=== PATIENT | female | born 1995 | race Caucasian/White ===

== ENCOUNTER 2016-06-07 21:26 | Emergency (ER) | payer BC ==
--- NOTE | 2016-06-07 21:49 | UC ---
Complaint Female HPI - HPI Summary HPI Summary: patient has had increased urgency and frequency of urination, she has had unprotected sex and denies fever and back pain - History Of Current Complaint Stated Complaint: URINARY Time Seen by Provider: 06/07/16 21:32 Hx Obtained From: Patient Hx Last Menstrual Period: 03/07/15 ?: No Onset/Duration: Sudden Onset, Lasting Days Timing: Constant Severity Initially: Mild Severity Currently: Mild Pain Intensity: 3 Pain Scale Used: 0-10 Numeric Aggravating Factor(s): Urination - Allergies/Home Medications Allergies/Adverse Reactions: Allergies Allergy/AdvReac Type Severity Reaction Status Date / Time No Known Allergies Allergy Verified 06/07/16 21:56 PMH/Surg Hx/FS Hx/Imm Hx Previously Healthy: Yes - Surgical History Surgical History: None - Family History Known Family History: Negative: Cardiac Disease, Hypertension - Social History Alcohol Use: Occasionally Substance Use Type: None Smoking Status (MU): Never Smoked Tobacco Review of Systems Constitutional: Negative Skin: Negative Eyes: Negative ENT: Negative Respiratory: Negative Cardiovascular: Negative Gastrointestinal: Negative Genitourinary: Frequency, Urgency Motor: Negative Neurovascular: Negative Musculoskeletal: Negative Neurological: Negative Psychological: Negative All Other Systems Reviewed And Are Negative: Yes Physical Exam Triage Information Reviewed: Yes Appearance: Well-Appearing, Well-Nourished, Pain Distress Vital Signs Reviewed: Yes Eye Exam: Normal Eyes: Positive: Conjunctiva Clear ENT Exam: Normal ENT: Positive: Normal ENT inspection, Hearing grossly normal, Pharynx normal, TMs normal Dental Exam: Normal Neck exam: Normal Neck: Positive: Supple, Nontender, No Lymphadenopathy Respiratory Exam: Normal Respiratory: Positive: Chest non-tender, Lungs clear, Normal breath sounds Cardiovascular Exam: Normal Cardiovascular: Positive: RRR, No Murmur, Pulses Normal Abdominal Exam: Normal Abdomen Description: Positive: Nontender, No Organomegaly, Soft - neg CVA tenderness Bowel Sounds: Positive: Present Musculoskeletal Exam: Normal Musculoskeletal: Positive: Strength Intact, ROM Intact, No Edema Neurological Exam: Normal Neurological: Positive: Alert, Muscle Tone Normal Psychological Exam: Normal Skin Exam: Normal Complaint Female Dx - Course Course Of Treatment: hx obtained, exam performed, UA and Urine done, gc/cl sent as well due to unprotected sex. she denies any buring, urine is cloudy and dark. educated on prevention of UTI. and improtance of using protection during sex. - Differential Dx/Diagnosis Differential Diagnosis/HQI/PQRI: Pelvic Inflammatory Disease, Sexually Transmitted Disease, Ureteral Stone, Urinary Tract Infection Provider Diagnoses: UTI Discharge - Discharge Plan Condition: Stable Disposition: HOME Discharge Disposition Comment: UTI Prescriptions: Cephalexin CAP* [Keflex CAP*] 500 mg PO BID #13 cap Phenazopyridine TAB* [Pyridium TAB*] 100 mg PO TID #6 tab Patient Education Materials: Urinary Tract Infection in Women (ED) Referrals: Non Staff,Doctor [Primary Care Provider] - Additional Instructions: Take the medication as prescribed. YOur test for STD takes a few days, we will call with positive results. Increase your fluid intake and practice good hygiene like we talked about.
[2016-06-07] MEDS ORDERED: Cephalexin CAP* 500 MG PO ONE (21:50)
[2016-06-07] MEDS ORDERED: Phenazopyridine TAB* 100 MG PO ONE (21:56)
[2016-06-07 22:00] VITALS: BP 117/76
[2016-06-07] MEDS ORDERED: Phenazopyridine TAB* 100 MG ONE (22:03)
== END 2016-06-07 22:14 | disposition home or self-care (01) ==
LOC: UCCORT 21:26
DX: N39.0 Urinary tract infection, site not specified (principal); Z32.02 Encounter for pregnancy test, result negative
CPT/HCPCS: 81025; 87077; 87086; 87186; 87491; 87591; 99212; A9270-GY; G0463

== ENCOUNTER 2016-07-16 15:24 | Emergency (ER) | payer BC ==
[2016-07-16 17:21] VITALS: BP 125/77
--- NOTE | 2016-07-16 18:21 | UC ---
Throat Pain/Nasal Iglesia HPI - HPI Summary HPI Summary: SORE THROAT HEADACHE COUGH AND FEVER FOR ONE WEEK. NO RASHES, NO ABDOMINAL PAIN. - History of Current Complaint Chief Complaint: UCGeneralIllness Stated Complaint: THROAT,PIERCE Time Seen by Provider: 07/16/16 17:20 Hx Obtained From: Patient Hx Last Menstrual Period: 2 wks ago Onset/Duration: Gradual Onset, Lasting Days, Still Present Severity: Moderate Associated Signs & Symptoms: Positive: Dysphagia, Hoarseness, Sinus Discomfort, Fever - Epiglottits Risk Factors Epiglottis Risk Factors: Negative - Allergies/Home Medications Allergies/Adverse Reactions: Allergies Allergy/AdvReac Type Severity Reaction Status Date / Time No Known Allergies Allergy Verified 07/16/16 17:16 Home Medications: Home Medications Acetaminophen TAB* [Tylenol TAB*] 650 mg PO Q6H PRN 07/16/16 [History Confirmed 07/16/16] PMH/Surg Hx/FS Hx/Imm Hx Previously Healthy: Yes - Surgical History Surgical History: None - Family History Known Family History: Negative: Cardiac Disease, Hypertension - Social History Occupation: Student Lives: With Family Alcohol Use: Occasionally Substance Use Type: None Smoking Status (MU): Never Smoked Tobacco Review of Systems Constitutional: Fever, Chills, Fatigue Skin: Negative Eyes: Negative ENT: Sore Throat, Nasal Discharge Cardiovascular: Negative Gastrointestinal: Negative Genitourinary: Negative Motor: Negative Neurovascular: Negative Musculoskeletal: Myalgia Neurological: Negative Psychological: Negative All Other Systems Reviewed And Are Negative: Yes Physical Exam Triage Information Reviewed: Yes Appearance: No Pain Distress, Well-Nourished, Ill-Appearing - MILD Vital Signs: Initial Vital Signs Temp 100.1 F 07/16/16 17:16 Pulse 79 07/16/16 17:16 Resp 16 07/16/16 17:16 BP 125/77 07/16/16 17:16 Pulse Ox 100 07/16/16 17:16 Vital Signs Reviewed: Yes Eye Exam: Normal Eyes: Positive: Conjunctiva Clear ENT: Positive: Hearing grossly normal, Pharyngeal erythema, TMs normal Dental Exam: Normal Neck exam: Normal Neck: Positive: Supple, Nontender, No Lymphadenopathy. Negative: Nuchal Rigidity, Tenderness @, Enlarged Nodes @ Respiratory Exam: Normal Respiratory: Positive: Chest non-tender, Lungs clear, Normal breath sounds, No respiratory distress, No accessory muscle use Cardiovascular Exam: Normal Cardiovascular: Positive: RRR, No Murmur, Pulses Normal, Brisk Capillary Refill Abdominal Exam: Normal Abdomen Description: Positive: Nontender, No Organomegaly, Soft Musculoskeletal Exam: Normal Musculoskeletal: Positive: Strength Intact, ROM Intact, No Edema Neurological Exam: Normal Psychological Exam: Normal Psychological: Positive: Normal Response To Family Skin Exam: Normal Throat Pain/Nasal Course/Dx - Differential Dx/Diagnosis Differential Diagnosis/HQI/PQRI: Influenza, Mononucleosis, Pharyngitis, Sinusitis, Tonsillitis, URI Provider Diagnoses: VIRAL SYNDROME. UPPER RESPIRATORY INFECTION Discharge - Discharge Plan Condition: Stable Disposition: HOME Patient Education Materials: Upper Respiratory Infection (ED), Viral Syndrome ( ED) Forms: *School Release Referrals: [facility] [Outside] Non Staff,Doctor [Primary Care Provider] -
[2016-07-17 10:34] LABS: EBV Response YES
[2016-07-17 10:46] LABS: Mono Internal Control QC Line Present
[2016-07-18 11:49] LABS: EBV Capsid Ag IgG Ab Positive (Negative); EBV Capsid Ag IgM Ab Negative (Negative)
== END 2016-07-16 18:35 | disposition home or self-care (01) ==
LOC: UCCORT 15:24
DX: B34.9 Viral infection, unspecified (principal); J06.9 Acute upper respiratory infection, unspecified
CPT/HCPCS: 36415; 86308; 86664; 86665; 87502; 87651; 99211; G0463

== ENCOUNTER 2016-07-24 12:21 | Emergency (ER) | payer BC ==
[2016-07-24 13:54] VITALS: BP 128/84
--- NOTE | 2016-07-24 14:00 | UC ---
Throat Pain/Nasal Iglesia HPI - HPI Summary HPI Summary: Head congestion for over 2 weeks, now green sputum. Pt was here 07/16/16, had dx of URI. 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 Pain/ pressure over cheeks and upper teeth, rt > left. hurts more when she bends fwd. fever of 100. + cough, no wheezing. denies , although due now. on OCP. - History of Current Complaint Chief Complaint: UCRespiratory Stated Complaint: SINUS COMPLAINT Time Seen by Provider: 07/24/16 13:33 Hx Last Menstrual Period: about one month - Allergies/Home Medications Allergies/Adverse Reactions: Allergies Allergy/AdvReac Type Severity Reaction Status Date / Time No Known Allergies Allergy Verified 07/24/16 13:54 Home Medications: Home Medications Ibuprofen TAB* [Advil TAB*] 400 mg PO Q6H PRN 07/24/16 [History Confirmed ] PMH/Surg Hx/FS Hx/Imm Hx Previously Healthy: Yes - Surgical History Surgical History: None - Family History Known Family History: Negative: Cardiac Disease, Hypertension - Social History Alcohol Use: Occasionally Substance Use Type: None Smoking Status (MU): Never Smoked Tobacco Review of Systems Constitutional: Negative Skin: Negative Eyes: Negative ENT: Sore Throat, Ear Ache, Nasal Discharge Respiratory: Cough Cardiovascular: Negative Gastrointestinal: Negative Genitourinary: Negative Motor: Negative Neurovascular: Negative Musculoskeletal: Negative Neurological: Negative Psychological: Negative All Other Systems Reviewed And Are Negative: Yes Physical Exam Triage Information Reviewed: Yes Appearance: Well-Nourished, Ill-Appearing - nasal congestion Vital Signs: Initial Vital Signs Temp 99.3 F 07/24/16 13:46 Pulse 79 07/24/16 13:46 Resp 18 07/24/16 13:46 BP 128/84 07/24/16 13:46 Pulse Ox 100 07/24/16 13:46 Eye Exam: Normal ENT: Positive: Pharyngeal erythema - +PND, no exudate., Nasal congestion, TMs normal, Other: - + b/l frontal and maxillary tenderness.. Negative: Tonsillar exudate - no abscess Dental Exam: Normal Neck exam: Normal Neck: Positive: Supple, Nontender, No Lymphadenopathy. Negative: Nuchal Rigidity Respiratory Exam: Normal Respiratory: Positive: Lungs clear, Normal breath sounds, No respiratory distress, No accessory muscle use. Negative: Crackles, Rhonchi, Stridor, Wheezing Cardiovascular Exam: Normal Cardiovascular: Positive: RRR, No Murmur, Pulses Normal, Brisk Capillary Refill Abdominal Exam: Normal Abdomen Description: Positive: Nontender, Soft Musculoskeletal Exam: Normal Neurological Exam: Normal Psychological Exam: Normal Skin Exam: Normal Throat Pain/Nasal Course/Dx - Differential Dx/Diagnosis Differential Diagnosis/HQI/PQRI: Laryngitis, Pharyngitis, Sinusitis, Tonsillitis , URI Provider Diagnoses: sinusitis Discharge - Discharge Plan Condition: Stable Disposition: HOME Prescriptions: Amoxicillin (*) [Amoxicillin 875 MG (*)] 875 mg PO BID #20 tab Patient Education Materials: Sinusitis (ED) Referrals: Non Staff,Doctor [Primary Care Provider] - Additional Instructions: Follow up with student health services in 4-5 days. Make sure to use back up control for the rest of your control pack as the antibiotics can decrease the efficacy of control. You should take a probiotic daily while on the antibiotics. Take all 10 days worth and set an alarm on your phone as a reminder. Fluids, rest. Avoid afrin nasal spray for more than 3 days, but you can use flonase nasal spray OTC. You shouldn't drink alcohol while on the antibiotic.
== END 2016-07-24 14:44 | disposition home or self-care (01) ==
LOC: UCCORT 12:21
DX: J32.9 Chronic sinusitis, unspecified (principal)
CPT/HCPCS: 99212; G0463

== ENCOUNTER 2016-08-17 07:25 | Emergency (ER) | payer BC ==
[2016-08-17 08:00] VITALS: BP 126/73
[2016-08-17] MEDS ORDERED: Sulfamethox/Trimethoprim DS 800/160* TAB PO ONE (08:18)
--- NOTE | 2016-08-17 08:24 | UC ---
Complaint Female HPI - HPI Summary HPI Summary: 21 yo female with the onset of dysuria /urgency and frequency last pm no vag d/c or itch no f/c no n/v/d had UTI 2 months ago - History Of Current Complaint Chief Complaint: UCGU Stated Complaint: URINARY Time Seen by Provider: 08/17/16 08:03 Hx Obtained From: Patient Hx Last Menstrual Period: 07/25/16 Onset/Duration: Sudden Onset, Lasting Hours Timing: Intermittent, Lasting Minutes Severity Initially: Mild Severity Currently: Mild Pain Intensity: 4 Pain Scale Used: 0-10 Numeric Character: Burning Aggravating Factor(s): Urination Alleviating Factor(s): Meds - pyridium Associated Signs And Symptoms: Positive: Negative Related Hx: Similar Episode/Dx as: - UTI - Allergies/Home Medications Allergies/Adverse Reactions: Allergies Allergy/AdvReac Type Severity Reaction Status Date / Time No Known Allergies Allergy Verified 08/17/16 07:54 Home Medications: Home Medications Biotin 1 tab PO DAILY 08/17/16 [History Confirmed 08/17/16] Phenazopyridine TAB* [Pyridium 100 mg TAB*] 100 mg PO ONCE PRN 08/17/16 [ History Confirmed 08/17/16] PMH/Surg Hx/FS Hx/Imm Hx Previously Healthy: Yes - Surgical History Surgical History: None - Family History Known Family History: Negative: Cardiac Disease, Hypertension, Diabetes - Social History Alcohol Use: Occasionally Substance Use Type: None Smoking Status (MU): Never Smoked Tobacco Review of Systems Constitutional: Negative Skin: Negative Eyes: Negative ENT: Negative Respiratory: Negative Cardiovascular: Negative Gastrointestinal: Negative Genitourinary: Dysuria, Frequency, Urgency Motor: Negative Neurovascular: Negative Musculoskeletal: Negative Neurological: Negative Psychological: Negative All Other Systems Reviewed And Are Negative: Yes Physical Exam Triage Information Reviewed: Yes Appearance: Well-Appearing, No Pain Distress, Well-Nourished Vital Signs: Initial Vital Signs Temp 99.2 F 08/17/16 07:56 Pulse 87 08/17/16 07:56 Resp 16 08/17/16 07:56 BP 126/73 08/17/16 07:56 Pulse Ox 99 08/17/16 07:56 Vital Signs Reviewed: Yes Eyes: Positive: Conjunctiva Clear ENT: Positive: Hearing grossly normal. Negative: Nasal congestion, Nasal drainage, Trismus, Muffled/hoarse voice Neck: Positive: Supple, Nontender, No Lymphadenopathy Respiratory: Positive: Normal breath sounds, No respiratory distress, No accessory muscle use Cardiovascular: Positive: RRR, No Murmur Abdomen Description: Positive: Soft. Negative: Nontender - tender suprapubically, CVA Tenderness (R), CVA Tenderness (L), Peritoneal Signs, Pulsatile Mass, Splenomegaly Musculoskeletal: Positive: ROM Intact, No Edema Neurological: Positive: Alert Psychological: Positive: Normal Response To Family Skin Exam: Normal Complaint Female Dx - Differential Dx/Diagnosis Provider Diagnoses: dysuria. suspect acute cystitis Discharge - Discharge Plan Condition: Stable Disposition: HOME Prescriptions: Phenazopyridine TAB* [Pyridium 100 mg TAB*] 100 mg PO TID #6 tab Sulfamethox/Trimethoprim DS* [Bactrim DS 800/160 TAB*] 1 tab PO BID #14 tab Patient Education Materials: Urinary Tract Infection in Women (ED) Referrals: Non Staff,Doctor [Primary Care Provider] - Additional Instructions: take pyridium 3x day for a couple of days if needed recheck if not better in 2 days a urine culture is pending
== END 2016-08-17 08:29 | disposition home or self-care (01) ==
LOC: UCCORT 07:25
DX: R30.0 Dysuria (principal); R39.15 Urgency of urination; R35.0 Frequency of micturition; Z87.440 Personal history of urinary (tract) infections
CPT/HCPCS: 87077; 87086; 87186; 99212; A9270-GY; G0463

== ENCOUNTER 2017-01-25 19:24 | Emergency (ER) | payer BC ==
[2017-01-25 20:02] VITALS: BP 140/65
--- NOTE | 2017-01-25 20:24 | UC ---
Complaint Female HPI - HPI Summary HPI Summary: Patient started having burning with urination this morning, had unprotected sex multiple times over the past few weeks, wants to be tested for GC and CL - History Of Current Complaint Chief Complaint: UCGU Stated Complaint: UTI Time Seen by Provider: 01/25/17 20:10 Hx Obtained From: Patient Hx Last Menstrual Period: 01/13/17 ?: No Onset/Duration: Sudden Onset, Lasting Hours Timing: Intermittent Severity Initially: Mild Severity Currently: Mild Character: Burning Aggravating Factor(s): Urination - Allergies/Home Medications Allergies/Adverse Reactions: Allergies Allergy/AdvReac Type Severity Reaction Status Date / Time No Known Allergies Allergy Verified 01/25/17 19:53 PMH/Surg Hx/FS Hx/Imm Hx Previously Healthy: Yes - Surgical History Surgical History: None - Family History Known Family History: Negative: Cardiac Disease, Hypertension, Diabetes - Social History Alcohol Use: Occasionally Substance Use Type: None Smoking Status (MU): Never Smoked Tobacco - Immunization History Most Recent Influenza Vaccination: NOT YET 2017 Review of Systems Constitutional: Negative Skin: Negative Eyes: Negative ENT: Negative Respiratory: Negative Cardiovascular: Negative Gastrointestinal: Abdominal Pain Genitourinary: Dysuria Motor: Negative Neurovascular: Negative Musculoskeletal: Negative Neurological: Negative Psychological: Negative Is Patient Immunocompromised?: No All Other Systems Reviewed And Are Negative: Yes Physical Exam Triage Information Reviewed: Yes Appearance: Well-Appearing, Well-Nourished, Pain Distress Vital Signs: Initial Vital Signs Temp 98.2 F 01/25/17 19:53 Pulse 77 01/25/17 19:53 Resp 16 01/25/17 19:53 BP 140/65 01/25/17 19:53 Pulse Ox 100 01/25/17 19:53 Vital Signs Reviewed: Yes Eye Exam: Normal ENT Exam: Normal Dental Exam: Normal Neck exam: Normal Respiratory Exam: Normal Cardiovascular Exam: Normal Abdomen Description: Positive: Nontender, No Organomegaly, Soft Bowel Sounds: Positive: Present Musculoskeletal Exam: Normal Neurological Exam: Normal Psychological Exam: Normal Skin Exam: Normal Complaint Female Dx - Course Course Of Treatment: hx obtained, exam performed ,meds reviewed, urine GC.CL obtained, UA obtained. educated on safe sex - Differential Dx/Diagnosis Differential Diagnosis/HQI/PQRI: Sexually Transmitted Disease, Urinary Tract Infection Provider Diagnoses: UTI Discharge - Discharge Plan Condition: Stable Disposition: HOME Prescriptions: Ciprofloxacin TAB* [Cipro 500 MG TAB*] 500 mg PO BID #5 tab Patient Education Materials: Urinary Tract Infection in Women (ED) Referrals: Non Staff,Doctor [Primary Care Provider] - [facility] [Outside] Additional Instructions: 1. take the medication as prescribed. 2. Your other testing should be ready by thursday. we call with any psotive results. 3. I am giving you the name of a local wom[facility] clinic for follow up as needed.
[2017-01-25] MEDS ORDERED: Ciprofloxacin TAB* 500 MG PO ONE (20:30)
[2017-01-25] MEDS ORDERED: Phenazopyridine TAB* 100 MG PO ONE (21:09)
--- NOTE | 2017-01-27 07:25 | UC ---
Progress - Progress Note Progress Note: + June ' will ERx Diflucan 150 mg x1
== END 2017-01-25 21:27 | disposition home or self-care (01) ==
LOC: UCCORT 19:24
DX: N39.0 Urinary tract infection, site not specified (principal)
CPT/HCPCS: 81003; 87086; 87480; 87491; 87510; 87591; 87660; 99212; A9270-GY; G0463

== ENCOUNTER 2017-02-19 08:50 | Emergency (ER) | payer BC ==
--- NOTE | 2017-02-19 10:01 | UC ---
UC General HPI - HPI Summary HPI Summary: exposure to Hep A at home./ concerned for hep a. has had yellowing of the feet since Thursday . 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 no diarrhea. no body aches aware of risks of leaving. promises to go to class and then after that go to ED for further work up . - History of Current Complaint Stated Complaint: HEP A EXPOSURE Time Seen by Provider: 02/19/17 09:30 Hx Obtained From: Patient Hx Last Menstrual Period: 01/13/17 - Allergy/Home Medications Allergies/Adverse Reactions: Allergies Allergy/AdvReac Type Severity Reaction Status Date / Time No Known Allergies Allergy Verified 01/25/17 19:53 PMH/Surg Hx/FS Hx/Imm Hx Previously Healthy: Yes - Surgical History Surgical History: None - Family History Known Family History: Negative: Cardiac Disease, Hypertension, Diabetes - Social History Occupation: Student Alcohol Use: Occasionally Substance Use Type: None Smoking Status (MU): Never Smoked Tobacco - Immunization History Most Recent Influenza Vaccination: NOT YET 2017 Review of Systems Constitutional: Negative Skin: Other - yeloowing of skin Eyes: Negative ENT: Negative Respiratory: Negative Cardiovascular: Negative Gastrointestinal: Negative Genitourinary: Negative Motor: Negative Neurovascular: Negative Musculoskeletal: Negative Neurological: Negative Psychological: Negative All Other Systems Reviewed And Are Negative: Yes Physical Exam Triage Information Reviewed: Yes Appearance: Well-Appearing, No Pain Distress, Well-Nourished Vital Signs Reviewed: No Eye Exam: Normal Neck: Positive: 1 Respiratory Exam: Normal Cardiovascular Exam: Normal Musculoskeletal Exam: Normal Neurological Exam: Normal Psychological Exam: Normal Skin Exam: Normal Course/Dx - Course Course Of Treatment: left AMA - did branch credit counselor on concerns of not going to the ED directly and aware -- she is aware and agrees - Differential Dx - Multi-Symptom Provider Diagnoses: exposure to hep a Discharge - Discharge Plan Condition: Guarded Disposition: AGAINST MEDICAL ADVICE Additional Instructions: YOU ARE ADVISED TO GO TO THE EMERGENCY ROOM FOR FURTHER EVALUATION DUE TO YOUR HEPATITIS A EXPOSURE. PLEASE GO TO THE EMERGENCY ROOM.
== END 2017-02-19 09:40 | disposition left against medical advice (07) ==
LOC: UCCORT 08:50
DX: Z20.5 Contact with and (suspected) exposure to viral hepatitis (principal)
CPT/HCPCS: 99211; G0463

== ENCOUNTER 2017-08-02 19:03 | Emergency (ER) | payer BC ==
[2017-08-02 19:30] VITALS: BP 135/86
--- NOTE | 2017-08-02 20:12 | UC ---
Complaint Female HPI - HPI Summary HPI Summary: 22 yo female with the onset yesterday of pelvic pain and dysuria fever took azo hx pyleo - History Of Current Complaint Chief Complaint: UCGU Stated Complaint: URINARY COMPLAINT Time Seen by Provider: 08/02/17 19:46 Hx Obtained From: Patient Hx Last Menstrual Period: 07/29/17 Onset/Duration: Gradual Onset, Lasting Hours Timing: Constant Severity Initially: Mild Severity Currently: Severe Pain Intensity: 7 Pain Scale Used: 0-10 Numeric Character: Cramping, Colicy Aggravating Factor(s): Movement Alleviating Factor(s): Nothing Associated Signs And Symptoms: Positive: Fever, Nausea - Allergies/Home Medications Allergies/Adverse Reactions: Allergies Allergy/AdvReac Type Severity Reaction Status Date / Time No Known Allergies Allergy Verified 01/25/17 19:53 Home Medications: Home Medications Phenazopyridine TAB* [Pyridium 100 mg TAB*] 100 mg PO TID PRN 08/02/17 [History Confirmed 08/02/17] PMH/Surg Hx/FS Hx/Imm Hx Previously Healthy: Yes - Surgical History Surgical History: None - Family History Known Family History: Negative: Cardiac Disease, Hypertension, Diabetes - Social History Alcohol Use: Occasionally Substance Use Type: None Smoking Status (MU): Never Smoked Tobacco - Immunization History Most Recent Influenza Vaccination: NOT YET 2017 Review of Systems Constitutional: Fever, Chills Skin: Negative Eyes: Negative ENT: Negative Respiratory: Negative Cardiovascular: Negative Gastrointestinal: Negative Genitourinary: Dysuria, Frequency, Urgency Motor: Negative Neurovascular: Negative Musculoskeletal: Negative Neurological: Negative Psychological: Negative Is Patient Immunocompromised?: No All Other Systems Reviewed And Are Negative: Yes Physical Exam Triage Information Reviewed: Yes Appearance: Well-Appearing, No Pain Distress, Well-Nourished Vital Signs: Initial Vital Signs Temp 100 F 08/02/17 19:26 Pulse 103 08/02/17 19:26 Resp 20 08/02/17 19:26 BP 135/86 08/02/17 19:26 Pulse Ox 97 08/02/17 19:26 Vital Signs Reviewed: Yes Eyes: Positive: Conjunctiva Clear Neck: Positive: Supple, Nontender Respiratory: Positive: Lungs clear, Normal breath sounds, No respiratory distress, No accessory muscle use Cardiovascular: Positive: RRR, No Murmur, Tachycardia Abdomen Description: Negative: Nontender - tender supropubicallu Pelvic Exam: Positive: External Exam Normal, Cervicitis, Discharge, Tender w/ Cervical Motion, Tender Adnexa. Negative: Speculum Exam Normal, No Cerv. Motion Tender Neurological: Positive: Alert Psychological Exam: Normal Skin Exam: Normal Complaint Female Dx - Course Course Of Treatment: d/w Willie Dia NP at [facility]. to ER via POV. declines ems transfer - Differential Dx/Diagnosis Provider Diagnoses: pelvic pain. ? PID vs pyelo vs other Discharge - Sign-Out/Discharge Documenting (check all that apply): Discharge - Discharge Plan Condition: Stable Disposition: [facility]ANS [facility] Referrals: Non Staff,Doctor [Primary Care Provider] - Additional Instructions: I suspect your symptoms are due to something other than a UTI Due to your fever and severe pelvic pain you need to go to the ER for further investigation I spoke to Mckayla Livingston NP and they are expecting you - Billing Disposition and Condition Condition: STABLE Disposition: EMTALA
--- NOTE | 2017-08-05 07:12 | UC ---
- Progress Note Progress Note: Note reviewed. Pt went to ED for pelvic pain. If they placed her on an antibiotic then we are done. If not, I have sent in Rx for bactrim that she can start. Discharge - Sign-Out/Discharge Documenting (check all that apply): Post-Discharge Follow Up - Discharge Plan Condition: Stable Disposition: [facility] FAC Referrals: Non Staff,Doctor [Primary Care Provider] - Additional Instructions: I suspect your symptoms are due to something other than a UTI Due to your fever and severe pelvic pain you need to go to the ER for further investigation I spoke to Mckayla Livingston ,[facility] and they are expecting you - Billing Disposition and Condition Condition: STABLE Disposition: EMTALA
== END 2017-08-02 20:22 | disposition short-term general hospital (02) ==
LOC: UCCORT 19:03
DX: R10.2 Pelvic and perineal pain (principal); A49.8 Other bacterial infections of unspecified site; Z32.02 Encounter for pregnancy test, result negative
CPT/HCPCS: 84702; 87077; 87086; 87186; 87480; 87491; 87510; 87591; 87661; 99212; G0463